=== PATIENT | male | born 1995 | race Two or more races ===

== ENCOUNTER 2021-02-24 11:20 | Emergency (ER) | payer SELFPAY ==
[~2021-02-24] VITALS: Ht 167.6 cm; Wt 68.0 kg
[2021-02-24 11:25] VITALS: BP 118/83
[2021-02-24] MEDS ORDERED: MED4 MT (12:44)
[2021-02-24] MEDS ORDERED: CETI10TA6 MT (12:44)
== END 2021-02-24 19:04 | disposition home or self-care (01) ==
LOC: ER 11:20
DX: T78.49XA Other allergy, initial encounter (principal); S50.861A Insect bite (nonvenomous) of right forearm, initial encounter; W57.XXXA Bitten or stung by nonvenomous insect and other nonvenomous arthropods, initial encounter; Y93.89 Activity, other specified; Y92.018 Other place in single-family (private) house as the place of occurrence of the external cause
CPT/HCPCS: 99283